=== PATIENT | male | born 2000 ===

== ENCOUNTER 2021-04-16 01:42 | Emergency (ER) | payer OTHER ==
[~2021-04-16] VITALS: Ht 198.1 cm; Wt 101.0 kg
[2021-04-16] MEDS ORDERED: DIPH,PERTUSS(ACELL),TET VAC/PF 0.5 ML IM-VACC ONE ×2 (02:09→02:30)
--- NOTE | 2021-04-16 02:13 | NUR ---
PT C/O OF HAND PAIN FROM PLAYING BASEBALL AND DIVING PT HAND APPEARS SCRAPED UP. VUN. RISSAS. TM
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
[2021-04-16] MEDS ORDERED: BACITRACIN ZINC OINT 500U/GM, 0.9 GM ONE (02:17)
[2021-04-16] MEDS ORDERED: IBUPROFEN 800 MG TABLET ONE (03:58)
[2021-04-16] MEDS ORDERED: PLEASE ENTER ALLERGIES MC SCH (04:00)
[2021-04-16] MEDS ORDERED: IBUPROFEN 800 MG TABLET PO ONE (04:00)
[2021-04-16 05:21] VITALS: BP 129/78
--- NOTE | 2021-04-16 05:37 | NUR ---
Patient/Caregiver given discharge instructions and they have confirmed that they understand the instructions. Patient ambulatory with steady gait. NAD, all questions answered appropriately, denies additional needs at this time. No personal belongings left in room after discharge. PT UPSET DIAGNOSTICS WERE TAKING SO LONG. PT ALSO UPSET IT TOOK ANOTHER NURSE A LONG TIME TO GET TYLENOL WHILE THIS NURSE WAS ON BREAK. PT WAS TIRED OF WAITING AND WANTED TO LEAVE BUT WAS CONVINCED TO STAY TO SPLINT HIS RIGHT HAND. PT UPSET AND LEFT RIGHT AFTER SPLINT. DID NOT WANT TO WAIT TO GET REST OF IMAGING DONE. WAS ABLE TO GO OVER DC INSTRUCTIONS WHILE SPLINT BY CARE COORDINATOR WAS BEING APPLIED.
== END 2021-04-16 05:40 | disposition home or self-care (01) ==
LOC: ED 04:52
DX: S63.521A Sprain of radiocarpal joint of right wrist, initial encounter (principal); S60.511A Abrasion of right hand, initial encounter; W21.03XA Struck by baseball, initial encounter; Y93.64 Activity, baseball; Y92.320 Baseball field as the place of occurrence of the external cause; Y99.8 Other external cause status
CPT/HCPCS: 29125; 99284